=== PATIENT | female | born 1990 | race American Indian/Alaskan Native ===

== ENCOUNTER 2018-02-19 03:09 | Inpatient (IN) | payer SELFPAY ==
--- NOTE | 2018-02-19 03:28 | C.PDOC ---
History Of Present Illness Patient presents to the ER with a complaint of abdominal pain, nausea, and vomiting. Patient has a Hx of fibroids and states when she gets her periods it gets extremely painful. She took 2 oxycodon at home with no relief, she then took a xanax at home to try to sleep but was unable to. Denies fever or chills. Time Seen by Provider: 02/19/18 03:27 Chief Complaint (Nursing): Abdominal Pain History Per: Patient History/Exam Limitations: no limitations Onset/Duration Of Symptoms: Hrs Current Symptoms Are (Timing): Still Present Severity: Moderate Pain Scale Rating Of: 5 Location Of Pain/Discomfort: Diffuse, Epigastric Radiation Of Pain To:: None Quality Of Discomfort: Unable To Describe Associated Symptoms: Nausea, Vomiting. denies: Fever, Chills Exacerbating Factors: None Alleviating Factors: None Recent travel outside of the [place]: No Abnormal Vaginal Bleeding: No Past Medical History Reviewed: Historical Data, Nursing Documentation, Vital Signs Vital Signs: Last Vital Signs Temp 98.1 F 02/19/18 03:12 Pulse 67 02/19/18 03:12 Resp 16 02/19/18 03:12 BP 129/70 02/19/18 03:12 Pulse Ox 100 02/19/18 03:57 - Medical History PMH: Anxiety Denies: Chronic Kidney Disease Family History: States: No Known Family Hx - Social History Hx Alcohol Use: Yes Hx Substance Use: No - Immunization History Hx Tetanus Toxoid Vaccination: No Hx Influenza Vaccination: No Hx Pneumococcal Vaccination: No Review Of Systems Constitutional: Negative for: Fever, Chills Cardiovascular: Negative for: Chest Pain, Palpitations Respiratory: Negative for: Cough, Shortness of Breath Gastrointestinal: Positive for: Nausea, Vomiting, Abdominal Pain Physical Exam - Physical Exam Appears: Non-toxic Skin: Warm, Dry Head: Normacephalic Oral Mucosa: Moist Chest: Symmetrical, No Tenderness Cardiovascular: Rhythm Regular Respiratory: No Rales, No Rhonchi, No Wheezing Gastrointestinal/Abdominal: Soft, Tenderness (Diffuse, mostly mid epigastric), Guarding (Voluntary), No Rebound Back: No CVA Tenderness Neurological/Psych: Oriented x3 ED Course And Treatment - Laboratory Results Result Diagrams: 02/19/18 03:42 02/19/18 03:42 O2 Sat by Pulse Oximetry: 100 (Room air) Pulse Ox Interpretation: Normal Progress Note: Blood work and urinalysis ordered. IV fluids, pepcid, and zofran administered. Disposition Counseled Patient/Family Regarding: Studies Performed, Diagnosis - Disposition Disposition Time: 03:28 Condition: FAIR Forms: [employer] (Frisian) - Clinical Impression Clinical Impression: Abdominal pain, Nausea, Vomiting, Vaginal bleeding - Scribe Statement The provider has reviewed the documentation as recorded by the Scribe Bon Longoria All medical record entries made by the Scribe were at my direction and personally dictated by me. I have reviewed the chart and agree that the record accurately reflects my personal performance of the history, physical exam, medical decision making, and the department course for this patient. I have also personally directed, reviewed, and agree with the discharge instructions and disposition. Physician Patient Turnover Patient Signed Over To: Cristine Gu Handoff Comments: pending ct scan results and re-eval/dispo Decision To Admit - . Patient Diagnosis: Vaginal bleeding
[2018-02-19] MEDS ORDERED: Sodium Chloride 0.9% 1,000 ML IV ONE ×2 (03:31→05:11)
[2018-02-19 03:48] LABS: BASO % 0.6 % (0.0-2.0); EOS # 0.1 K/uL (0.0-0.7); EOS % 1.1 % (0.0-4.0); HEMOGLOBIN 13.4 g/dL (11.0-16.0); LYMPH % 13.9 % (20.0-40.0); MEAN CELL VOLUME 87.1 fL (81.0-99.0); MEAN CORPUSCULAR HEMOGLOBIN 29.3 pg (27.0-31.0); MEAN CORPUSCULAR HGB CONC 33.7 g/dL (33.0-37.0); MEAN PLATELET VOLUME 9.4 fL (7.2-11.7); MONO # 0.4 K/uL (0.0-0.8); MONO % 4.9 % (0.0-10.0); NEUT # 5.8 K/uL (1.8-7.0); NEUT % 79.5 % (50.0-75.0); RBC 4.55 Mil/uL (3.80-5.20); RED CELL DISTRIBUTION WIDTH 13.3 % (11.5-14.5); WHITE BLOOD COUNT 7.3 K/uL (4.8-10.8)
[2018-02-19 03:55] LABS: INR 1.2; PROTHROMBIN TIME 13.2 SECONDS (9.7-12.2)
[2018-02-19 03:59] LABS: ALB/GLOB RATIO 1.4 (1.0-2.1); ALBUMIN 4.7 g/dL (3.5-5.0); ALT/SGPT 20 U/L (9-52); AST/SGOT 17 U/L (14-36); BLOOD UREA NITROGEN 19 mg/dL (7-17); CALCIUM 9.6 mg/dl (8.6-10.4); GFR NON-AFRICAN AMERICAN > 60; LIPASE 74 U/L (23-300)
[2018-02-19 05:52] LABS: HCG,QUALITATIVE URINE NEGATIVE (NEGATIVE)
[2018-02-19 05:58] LABS: SQUAMOUS EPITHIAL 4 /hpf (0-5); URINE BILIRUBIN NEGATIVE (NEGATIVE); URINE BLOOD 3+ (NEGATIVE); URINE CLARITY Hazy (Clear); URINE COLOR Red (YELLOW); URINE GLUCOSE (UA) NORMAL (Normal); URINE LEUKOCYTE ESTERASE 1+ Leu/uL (Negative); URINE PROTEIN 2+ mg/dL (NEGATIVE); URINE UROBILINOGEN NORMAL mg/dL (0.2-1.0)
[2018-02-19 07:00] LABS: BARBITURATES, UR NEGATIVE (NEGATIVE); OPIATES, UR NEGATIVE (NEGATIVE); PHENCYCLIDINE, UR NEGATIVE (NEGATIVE)
[2018-02-19] MEDS ORDERED: Iodixanol 320 MG/ML 100 ML BOTTLE IV ONE (07:37)
[2018-02-19 07:38] LABS: BENZODIAZEPINES, UR POSITIVE (NEGATIVE)
--- NOTE | 2018-02-19 09:15 | CT ---
Date of service: 02/19/2018 PROCEDURE: CT Abdomen and Pelvis with contrast HISTORY: abd pain, diffuse COMPARISON: None. TECHNIQUE: Following the intravenous administration of iodinated contrast material, a CT examination of the abdomen and pelvis performed from the domes of the diaphragms to the symphysis pubis with reformatted datasets provided in axial, sagittal and coronal planes. Oral contrast was not administered as per referring physician request. Contrast dose: Visipaque 320, 100 cc Radiation dose: Total exam DLP = 338.23 mGy-cm. This CT exam was performed using one or more of the following dose reduction techniques: Automated exposure control, adjustment of the mA and/or kV according to patient size, and/or use of iterative reconstruction technique. FINDINGS: LOWER THORAX: Unremarkable. LIVER: Unremarkable. No gross lesion or ductal dilatation. GALLBLADDER AND BILE DUCTS: Unremarkable. PANCREAS: Unremarkable. No gross lesion or ductal dilatation. SPLEEN: Unremarkable. ADRENALS: Unremarkable. No mass. KIDNEYS AND URETERS: Unremarkable. No hydronephrosis. No solid mass. VASCULATURE: Unremarkable. No aortic aneurysm. BOWEL: Some was collapsed and poorly evaluated. Lack of oral contrast limits evaluation the gastrointestinal tract overall. Nevertheless, the collapsed large bowel exhibits apparent mural thickening nearly completely but spares the distal rectosigmoid and is suspicious for pancolitis nevertheless. No free intra peritoneal gas or abscess. No ascites. Small bowel appears unremarkable as imaged. APPENDIX: Normal appendix. PERITONEUM: Unremarkable. No free fluid. No free air. LYMPH NODES: Unremarkable. No enlarged lymph nodes. BLADDER: Unremarkable. REPRODUCTIVE: Fibroid uterine changes identified. BONES: Congenital or posttraumatic healed angulation of the distal sacral/coccyx bony anatomy anteriorly. OTHER FINDINGS: None. IMPRESSION: 1. Findings most compatible with vanegas colitis with exception of sparing of the distal rectosigmoid. No abscess, free air or ascites identified at this time. 2. Fibroid uterine changes.
--- NOTE | 2018-02-19 12:44 | CP.PCM.HP ---
Addendum entered and electronically signed by Naz Lewis, 02/19/18 15:13: A&P: Hypokalemia; Will replace with IV fluids. Will continue to monitor Positive leukocytosis on UA: Will check urine culture. Pt is on Cipro which will cover possible UTI Original Note: <Naz Lewis - Last Filed: 02/19/18 15:10> History of Present Illness - History of Present Illness History of Present Illness: H&P: 27 year old female with past medical history of uterine fibroids presents for intractable vomiting and abdominal pain. Patient states for past 4 months, she has had daily nausea and vomiting after eating. Patient states she throws up food content, bile and had one episode of blood few weeks ago. Patient also c/o periumbilical abdominal pain prior to vomiting. patient denies having any diarrhea or constipation. Patient denies having any blood in stool. Today patient complains of fevers and chills with vomiting. Patient states she has not seen a physician for her symptoms in past few months because of insurance issues. Prior to 4 months, patient only had N/V episodes during her periods. Patient has irregular periods occurring twice a month and lasting about 7-10 days. She has heavy bleeding with clots. She is not currently sexually active. In ED today patient received multiple medications including Zofran, reglan and compazine without much relief. CT of abd/pelvis showed pancolitis with exception of distal rectosigmoid and unchanged uterine fibroid. Patient was seen for similar symptoms a few months ago at [facility] [place] but pt does not want to elaborate on the ED visit detail. ROS: Denies having CP, SOB, constipation or diarrhea. C/O N/V, marquez-umbilical abd pain with vomiting. Complains of suprapubic pain with urination. denies dysuria. Currently on her period PMHx: stated above Sx: denies Social: occasional ETOH use. denies tobacco use. Smokes cannabis daily Meds: none PMD: Dr. Rasmussen Present on Admission - Present on Admission Any Indicators Present on Admission: No Review of Systems - Constitutional Constitutional: absent: Chills, Fever - EENT Eyes: absent: Blurred Vision, Change in Vision Nose/Mouth/Throat: absent: Nasal Discharge, Sore Throat - Cardiovascular Cardiovascular: absent: Chest Pain, Dyspnea, Leg Edema - Respiratory Respiratory: absent: Cough, Dyspnea, Wheezing - Gastrointestinal Gastrointestinal: Abdominal Pain, Nausea, Vomiting. absent: Bloating, Constipation, Diarrhea - Genitourinary Genitourinary: Hematuria. absent: Dysuria, Urinary Frequency - Reproductive: Female Reproductive:Female: Heavy Menses, Dysmenorrhea - Menstruation Menstruation: Cycle <21 Days, Menses 1-7 Days - Musculoskeletal Musculoskeletal: absent: Back Pain, Neck Pain - Integumentary Integumentary: absent: Lesions, Rash, Wounds - Neurological Neurological: absent: Numbness, Tingling, Weakness - Psychiatric Psychiatric: absent: Anxiety, Depression - Endocrine Endocrine: absent: Fatigue, Polydipsia, Polyphagia Past Patient History - Past Social History Smoking Status: Current Some Days Smoker Chewing Tobacco Use: No Cigar Use: No Alcohol: Occasional Drugs: Cannabis - CARDIAC Hx Cardiac Disorders: No - PULMONARY Hx Respiratory Disorders: No - NEUROLOGICAL Hx Neurological Disorder: No - HEENT Hx HEENT Problems: No - RENAL Hx Chronic Kidney Disease: No - ENDOCRINE/METABOLIC Hx Endocrine Disorders: No - HEMATOLOGICAL/ONCOLOGICAL Hx Blood Disorders: No - INTEGUMENTARY Hx Dermatological Problems: No - MUSCULOSKELETAL/RHEUMATOLOGICAL Hx Musculoskeletal Disorders: No - GASTROINTESTINAL Hx Gastrointestinal Disorders: No - GENITOURINARY/GYNECOLOGICAL Hx Genitourinary Disorders: No - PSYCHIATRIC Hx Anxiety: Yes Hx Substance Use: No Meds Allergies/Adverse Reactions: Allergies Allergy/AdvReac Type Severity Reaction Status Date / Time No Known Allergies Allergy Verified 02/19/18 03:31 Physical Exam - Constitutional Appears: Non-toxic, No Acute Distress - Head Exam Head Exam: ATRAUMATIC, NORMOCEPHALIC - ENT Exam ENT Exam: Mucous Membranes Moist - Respiratory Exam Respiratory Exam: Clear to Auscultation Bilateral. absent: Accessory Muscle Use , Rales, Rhonchi, Wheezes, Respiratory Distress - Cardiovascular Exam Cardiovascular Exam: REGULAR RHYTHM, RRR, +S1, +S2. absent: Diastolic murmur, Gallop, Rubs, Systolic Murmur - GI/Abdominal Exam GI & Abdominal Exam: Normal Bowel Sounds, Soft, Tenderness. absent: Distended, Firm, Guarding, Organomegaly, Rigid - Extremities Exam Extremities exam: Negative for: pedal edema, tenderness - Neurological Exam Neurological exam: Alert, Oriented x3 - Psychiatric Exam Psychiatric exam: Normal Affect, Normal Mood - Skin Skin Exam: Dry, Intact, Normal Color, Warm Results - Vital Signs Recent Vital Signs: Last Vital Signs Temp 98.5 F 02/19/18 11:49 Pulse 51 L 02/19/18 11:49 Resp 16 02/19/18 11:49 BP 129/85 02/19/18 11:49 Pulse Ox 100 02/19/18 11:49 - Labs Result Diagrams: 02/19/18 03:42 02/19/18 03:42 Labs: Laboratory Results - last 24 hr 02/19/18 02/19/18 02/19/18 03:13 03:42 03:42 WBC 7.3 RBC 4.55 Hgb 13.4 Hct 39.7 MCV 87.1 MCH 29.3 MCHC 33.7 RDW 13.3 Plt Count 202 MPV 9.4 Neut % (Auto) 79.5 H Lymph % (Auto) 13.9 L [place] % (Auto) 4.9 Eos % (Auto) 1.1 Baso % (Auto) 0.6 Neut # (Auto) 5.8 Lymph # (Auto) 1.0 [place] # (Auto) 0.4 Eos # (Auto) 0.1 Baso # (Auto) 0.0 PT 13.2 H INR 1.2 APTT 31 Sodium Potassium Chloride Carbon Dioxide Anion Gap BUN Creatinine Est GFR ( Amer) Est GFR (Non-Af Amer) POC Glucose (mg/dL) 116 H Random Glucose Calcium Total Bilirubin AST ALT Alkaline Phosphatase Total Protein Albumin Globulin Albumin/Globulin Ratio Lipase Beta HCG, Quant Urine Color Urine Clarity Urine pH Ur Specific [place] Urine Protein Urine Glucose (UA) Urine Ketones Urine Blood Urine Nitrate Urine Bilirubin Urine Urobilinogen Ur Leukocyte Esterase Urine WBC (Auto) Urine RBC (Auto) Ur Squamous Epith Cells Urine HCG, Qual Salicylates Urine Opiates Screen Urine Methadone Screen Acetaminophen Ur Barbiturates Screen Ur Phencyclidine Scrn Ur Amphetamines Screen U Benzodiazepines Scrn U Oth Cocaine Metabols U Cannabinoids Screen 02/19/18 02/19/18 02/19/18 03:42 03:42 03:42 WBC RBC Hgb Hct MCV MCH MCHC RDW Plt Count MPV Neut % (Auto) Lymph % (Auto) [place] % (Auto) Eos % (Auto) Baso % (Auto) Neut # (Auto) Lymph # (Auto) [place] # (Auto) Eos # (Auto) Baso # (Auto) PT INR APTT Sodium 144 Potassium 3.4 L Chloride 108 H Carbon Dioxide 23 Anion Gap 16 BUN 19 H Creatinine 0.9 Est GFR ( Amer) > 60 Est GFR (Non-Af Amer) > 60 POC Glucose (mg/dL) Random Glucose 125 H Calcium 9.6 Total Bilirubin 0.5 AST 17 ALT 20 Alkaline Phosphatase 43 Total Protein 8.1 Albumin 4.7 Globulin 3.4 Albumin/Globulin Ratio 1.4 Lipase 74 Beta HCG, Quant Urine Color Urine Clarity Urine pH Ur Specific [place] Urine Protein Urine Glucose (UA) Urine Ketones Urine Blood Urine Nitrate Urine Bilirubin Urine Urobilinogen Ur Leukocyte Esterase Urine WBC (Auto) Urine RBC (Auto) Ur Squamous Epith Cells Urine HCG, Qual Salicylates < 1.0 Urine Opiates Screen Urine Methadone Screen Acetaminophen < 10.0 L Ur Barbiturates Screen Ur Phencyclidine Scrn Ur Amphetamines Screen U Benzodiazepines Scrn U Oth Cocaine Metabols U Cannabinoids Screen 02/19/18 02/19/18 02/19/18 05:50 06:32 08:27 WBC RBC Hgb Hct MCV MCH MCHC RDW Plt Count MPV Neut % (Auto) Lymph % (Auto) [place] % (Auto) Eos % (Auto) Baso % (Auto) Neut # (Auto) Lymph # (Auto) [place] # (Auto) Eos # (Auto) Baso # (Auto) PT INR APTT Sodium Potassium Chloride Carbon Dioxide Anion Gap BUN Creatinine Est GFR ( Amer) Est GFR (Non-Af Amer) POC Glucose (mg/dL) Random Glucose Calcium Total Bilirubin AST ALT Alkaline Phosphatase Total Protein Albumin Globulin Albumin/Globulin Ratio Lipase Beta HCG, Quant < 2.39 Urine Color Red Urine Clarity Hazy Urine pH 6.0 Ur Specific [place] 1.019 Urine Protein 2+ H Urine Glucose (UA) Normal Urine Ketones 1+ H Urine Blood 3+ H Urine Nitrate Negative Urine Bilirubin Negative Urine Urobilinogen Normal Ur Leukocyte Esterase 1+ H Urine WBC (Auto) 9 H Urine RBC (Auto) 5158 H Ur Squamous Epith Cells 4 Urine HCG, Qual Negative Salicylates Urine Opiates Screen Negative Urine Methadone Screen Negative Acetaminophen Ur Barbiturates Screen Negative Ur Phencyclidine Scrn Negative Ur Amphetamines Screen Negative U Benzodiazepines Scrn Positive U Oth Cocaine Metabols Negative U Cannabinoids Screen Positive H Assessment & Plan - Assessment and Plan (Free Text) Assessment: 27 year old female with past medical history of uterine fibroids, menorrhagia is admitted for intractable N/V and abdominal pain. CT of abdomen/pelvis with IV contrast showed pancolitis with exception of distal rectosigmoid; no free air or ascites; uterine fibroid present. Pt was afebrile with normal WBC count on admission. LFTs and lipase were both normal. Intractable N/V - Likely 2/2 metomenorrhagia from the uterine fibroid - Zofran 4 mg IVP q6 prn - Reglan 10 mg IV q6 prn - Will check HgbA1c with concern for grastroperesis - UDS is positive for cannabis. Pt admits to smoking every day. with this, there is concern for Cannabinoid hyperemesis syndrome. The risks of chronic cannabis use are explained to patient Pancolitis - Pt started on cipro 400 mg IV Q12 and flagyl 500 IV Q8 - Continue NS with potassium chloride at 107 cc - pain management with toradol - Will consult GI, Dr. Mack - CLD Uterine fibroid - CLIENT ACCOUNT MANAGER, Dr. Trujillo consulted. Recommends pelvic and transvaginal US Prophylaxis - Protonix 40 mg IVP qd - SCDs - No DVT indicated due to DVT prophylaxis score of 0-1 Case will be discussed with attending, Dr. Neena Rico - Date & Time Date: 02/19/18 Time: 13:58 <Rj Rico - Last Filed: 02/19/18 18:20> Results - Vital Signs Recent Vital Signs: Last Vital Signs Temp 98.8 F 02/19/18 15:09 Pulse 59 L 02/19/18 15:09 Resp 20 02/19/18 15:09 BP 137/87 02/19/18 15:09 Pulse Ox 96 02/19/18 15:09 - Labs Result Diagrams: 02/19/18 03:42 02/19/18 03:42 Labs: Laboratory Results - last 24 hr 02/19/18 02/19/18 02/19/18 03:13 03:42 03:42 WBC 7.3 RBC 4.55 Hgb 13.4 Hct 39.7 MCV 87.1 MCH 29.3 MCHC 33.7 RDW 13.3 Plt Count 202 MPV 9.4 Neut % (Auto) 79.5 H Lymph % (Auto) 13.9 L [place] % (Auto) 4.9 Eos % (Auto) 1.1 Baso % (Auto) 0.6 Neut # (Auto) 5.8 Lymph # (Auto) 1.0 [place] # (Auto) 0.4 Eos # (Auto) 0.1 Baso # (Auto) 0.0 PT 13.2 H INR 1.2 APTT 31 Sodium Potassium Chloride Carbon Dioxide Anion Gap BUN Creatinine Est GFR ( Amer) Est GFR (Non-Af Amer) POC Glucose (mg/dL) 116 H Random Glucose Calcium Total Bilirubin AST ALT Alkaline Phosphatase Total Protein Albumin Globulin Albumin/Globulin Ratio Lipase Beta HCG, Quant Urine Color Urine Clarity Urine pH Ur Specific [place] Urine Protein Urine Glucose (UA) Urine Ketones Urine Blood Urine Nitrate Urine Bilirubin Urine Urobilinogen Ur Leukocyte Esterase Urine WBC (Auto) Urine RBC (Auto) Ur Squamous Epith Cells Urine HCG, Qual Salicylates Urine Opiates Screen Urine Methadone Screen Acetaminophen Ur Barbiturates Screen Ur Phencyclidine Scrn Ur Amphetamines Screen U Benzodiazepines Scrn U Oth Cocaine Metabols U Cannabinoids Screen 02/19/18 02/19/18 02/19/18 03:42 03:42 03:42 WBC RBC Hgb Hct MCV MCH MCHC RDW Plt Count MPV Neut % (Auto) Lymph % (Auto) [place] % (Auto) Eos % (Auto) Baso % (Auto) Neut # (Auto) Lymph # (Auto) [place] # (Auto) Eos # (Auto) Baso # (Auto) PT INR APTT Sodium 144 Potassium 3.4 L Chloride 108 H Carbon Dioxide 23 Anion Gap 16 BUN 19 H Creatinine 0.9 Est GFR ( Amer) > 60 Est GFR (Non-Af Amer) > 60 POC Glucose (mg/dL) Random Glucose 125 H Calcium 9.6 Total Bilirubin 0.5 AST 17 ALT 20 Alkaline Phosphatase 43 Total Protein 8.1 Albumin 4.7 Globulin 3.4 Albumin/Globulin Ratio 1.4 Lipase 74 Beta HCG, Quant Urine Color Urine Clarity Urine pH Ur Specific [place] Urine Protein Urine Glucose (UA) Urine Ketones Urine Blood Urine Nitrate Urine Bilirubin Urine Urobilinogen Ur Leukocyte Esterase Urine WBC (Auto) Urine RBC (Auto) Ur Squamous Epith Cells Urine HCG, Qual Salicylates < 1.0 Urine Opiates Screen Urine Methadone Screen Acetaminophen < 10.0 L Ur Barbiturates Screen Ur Phencyclidine Scrn Ur Amphetamines Screen U Benzodiazepines Scrn U Oth Cocaine Metabols U Cannabinoids Screen 02/19/18 02/19/18 02/19/18 05:50 06:32 08:27 WBC RBC Hgb Hct MCV MCH MCHC RDW Plt Count MPV Neut % (Auto) Lymph % (Auto) [place] % (Auto) Eos % (Auto) Baso % (Auto) Neut # (Auto) Lymph # (Auto) [place] # (Auto) Eos # (Auto) Baso # (Auto) PT INR APTT Sodium Potassium Chloride Carbon Dioxide Anion Gap BUN Creatinine Est GFR ( Amer) Est GFR (Non-Af Amer) POC Glucose (mg/dL) Random Glucose Calcium Total Bilirubin AST ALT Alkaline Phosphatase Total Protein Albumin Globulin Albumin/Globulin Ratio Lipase Beta HCG, Quant < 2.39 Urine Color Red Urine Clarity Hazy Urine pH 6.0 Ur Specific [place] 1.019 Urine Protein 2+ H Urine Glucose (UA) Normal Urine Ketones 1+ H Urine Blood 3+ H Urine Nitrate Negative Urine Bilirubin Negative Urine Urobilinogen Normal Ur Leukocyte Esterase 1+ H Urine WBC (Auto) 9 H Urine RBC (Auto) 5158 H Ur Squamous Epith Cells 4 Urine HCG, Qual Negative Salicylates Urine Opiates Screen Negative Urine Methadone Screen Negative Acetaminophen Ur Barbiturates Screen Negative Ur Phencyclidine Scrn Negative Ur Amphetamines Screen Negative U Benzodiazepines Scrn Positive U Oth Cocaine Metabols Negative U Cannabinoids Screen Positive H Attending/Attestation - Attestation I have personally seen and examined this patient.: Yes I have fully participated in the care of the patient.: Yes I have reviewed all pertinent clinical information: Yes Notes (Text): 02/19/18 18:18 Patient was seen and examined at 5:45 PM History, physical, assessment and plan were gone over with the resident Patient significant other was at bedside [facility] and plan of care was also explained to her. Medicine Team learned that this is a patient of Dr. Rasmussen and care of patient has been transferred over to him. Rj Rico D.O.
[2018-02-19] MEDS: metroNIDAZOLE IV 500 mg/100 ml 500 MG/100 ML BAG IVPB SCH ×2 (13:30→21:28)
[2018-02-19] MEDS ORDERED: Sodium Chloride 0.9% 1,000 ML IV SCH ×2 (13:45)
--- NOTE | 2018-02-19 16:22 | US ---
Date of service: 02/19/2018 HISTORY: uterine fibroid COMPARISON: None available. TECHNIQUE: Transabdominal pelvic ultrasound was performed with longitudinal and transverse images submitted for interpretation. Transvaginal study was not utilized due to [place]. FINDINGS: UTERUS: Measures 9.5 x 5.9 x 6.3 cm. The uterus is enlarged by fibroid uterine changes and is anteverted. There is a small exophytic fibroid identified at the high anterior fundus measuring 1.8 x 1.9 x 1.4 cm. A larger posterior fundal fibroid measures 3.4 x 2.8 x 3.3 cm and bridges submucous and sub serosal spaces at the high posterior fundus. No additional isolated myometrial lesions are identified. ENDOMETRIUM: Measures 8.7 mm in diameter. Unremarkable. CERVIX: No cervical abnormality identified. RIGHT OVARY: Measures 3.1 x 2.4 x 3.2 cm. A small 5 mm hyperechoic focus is seen in the right ovary suspicious for a tiny dermoid or teratoma. Normal flow. LEFT OVARY: Measures 2.3 x 1.8 x 2.0 cm. No solid mass. Normal flow. FREE FLUID: No significant free fluid noted. OTHER FINDINGS: None. IMPRESSION: 1. No ovarian torsion bilaterally. 2. 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 3. Enlarged uterus with 2 uterine fibroids identified as per above. Unremarkable endometrium and cervix. No suspicious pelvic fluid collection.
[2018-02-19] MEDS: Ciprofloxacin 400mg/200ml D5W 400 MG/200 ML BAG IVPB SCH (17:11)
--- NOTE | 2018-02-19 21:25 | CP.PCM.CON ---
History of Present Illness - History of Present Illness History of Present Illness: 27 yo female G0 and only sexually active with her female partner. States: I am a virgin and are very afraid of pelvic exams. Presented to ER with c/o of intractable nausea and vomiting and with heavy menstrual flow for the past 2 days. In addition states that she was feeling dizzie and lightheaded Furthermore , she gives a Hx of similar conditions every time she has her period and since Menarche at age 11. Admits to been seen at different ER's and always sent home after lots of tests and unable to find anything wrong with her. Pt gave a Hx of + Fibroids and states that she is been told that those are most likely the reason for her prolonged and heavy periods. Denies lots of cramping with her menses. Has appointment to see Dr. Kelly for the first time. Review of Systems - Review of Systems All systems: reviewed and no additional remarkable complaints except (was is already indicated in HPI) Past Patient History - Past Medical History & Family History Past Medical History?: Yes Past Family History: Reviewed and not pertinent - Past Social History Smoking Status: Current Some Days Smoker Chewing Tobacco Use: No Cigar Use: No Alcohol: Occasional Drugs: Cannabis - CARDIAC Hx Cardiac Disorders: No - PULMONARY Hx Respiratory Disorders: No - NEUROLOGICAL Hx Neurological Disorder: No - HEENT Hx HEENT Problems: No - RENAL Hx Chronic Kidney Disease: No - ENDOCRINE/METABOLIC Hx Endocrine Disorders: No - HEMATOLOGICAL/ONCOLOGICAL Hx Blood Disorders: No - INTEGUMENTARY Hx Dermatological Problems: No - MUSCULOSKELETAL/RHEUMATOLOGICAL Hx Musculoskeletal Disorders: No - GASTROINTESTINAL Hx Gastrointestinal Disorders: No - GENITOURINARY/GYNECOLOGICAL Hx Genitourinary Disorders: No LMP:: 02/17/2018 : 0 - PSYCHIATRIC Hx Anxiety: Yes Hx Substance Use: No Meds Allergies/Adverse Reactions: Allergies Allergy/AdvReac Type Severity Reaction Status Date / Time No Known Allergies Allergy Verified 02/19/18 03:31 - Medications Medications: Current Medications Ciprofloxacin (Cipro 400mg/200ml Dsw) 400 mg in 200 mls @ 133 mls/hr IVPB Q12H SIMON PRN Reason: Protocol Last Admin: 02/19/18 17:11 Dose: 133 mls/hr Metronidazole (Flagyl) 500 mg in 100 mls @ 100 mls/hr IVPB Q8H SIMON PRN Reason: Protocol Last Admin: 02/19/18 13:30 Dose: 100 mls/hr Potassium Chloride 40 meq/ (Sodium Chloride) 1,020 mls @ 107 mls/hr IV .Q9H32M [facility] Last Admin: 02/19/18 15:19 Dose: 107 mls/hr Ketorolac Tromethamine (Toradol) 30 mg IVP Q6 PRN PRN Reason: Pain, severe (8-10) Last Admin: 02/19/18 17:06 Dose: 30 mg Ketorolac Tromethamine (Toradol) 15 mg IVP Q6 PRN PRN Reason: Pain, moderate (4-7) Metoclopramide HCl (Reglan) 10 mg IVP Q6H PRN PRN Reason: Nausea/Vomiting Last Admin: 02/19/18 17:06 Dose: 10 mg Ondansetron HCl (Zofran Inj) 4 mg IVP Q6H PRN PRN Reason: Nausea/Vomiting Last Admin: 02/19/18 13:48 Dose: 4 mg Pantoprazole Sodium (Protonix Inj) 40 mg IVP DAILY [facility] Physical Exam - Constitutional Appears: Non-toxic, No Acute Distress - Head Exam Head Exam: NORMAL INSPECTION - GI/Abdominal Exam GI & Abdominal Exam: Soft - Exam External exam: NORMAL EXTERNAL EXAM Speculum exam: NORMAL SPECULUM EXAM, Vaginal Bleeding Bimanual exam: Uterine Enlargement Additional comments: Cervix visualized and no lesions noted Small amount of blood in vagina Uterus about 8-10 weeks size and irregular Unable to palpate adnexa secondary to uterine size and pt's discomfort with pelvic exam - Extremities Exam Extremities exam: Positive for: normal inspection Results - Vital Signs Recent Vital Signs: Last Vital Signs Temp 98.8 F 02/19/18 15:09 Pulse 59 L 02/19/18 15:09 Resp 20 02/19/18 15:09 BP 137/87 02/19/18 15:09 Pulse Ox 96 02/19/18 15:09 - Labs Result Diagrams: 02/19/18 03:42 02/19/18 03:42 Labs: Laboratory Results - last 24 hr 02/19/18 02/19/18 02/19/18 03:13 03:42 03:42 WBC 7.3 RBC 4.55 Hgb 13.4 Hct 39.7 MCV 87.1 MCH 29.3 MCHC 33.7 RDW 13.3 Plt Count 202 MPV 9.4 Neut % (Auto) 79.5 H Lymph % (Auto) 13.9 L [place] % (Auto) 4.9 Eos % (Auto) 1.1 Baso % (Auto) 0.6 Neut # (Auto) 5.8 Lymph # (Auto) 1.0 [place] # (Auto) 0.4 Eos # (Auto) 0.1 Baso # (Auto) 0.0 PT 13.2 H INR 1.2 APTT 31 Sodium Potassium Chloride Carbon Dioxide Anion Gap BUN Creatinine Est GFR ( Amer) Est GFR (Non-Af Amer) POC Glucose (mg/dL) 116 H Random Glucose Calcium Total Bilirubin AST ALT Alkaline Phosphatase Total Protein Albumin Globulin Albumin/Globulin Ratio Lipase Beta HCG, Quant Urine Color Urine Clarity Urine pH Ur Specific [place] Urine Protein Urine Glucose (UA) Urine Ketones Urine Blood Urine Nitrate Urine Bilirubin Urine Urobilinogen Ur Leukocyte Esterase Urine WBC (Auto) Urine RBC (Auto) Ur Squamous Epith Cells Urine HCG, Qual Salicylates Urine Opiates Screen Urine Methadone Screen Acetaminophen Ur Barbiturates Screen Ur Phencyclidine Scrn Ur Amphetamines Screen U Benzodiazepines Scrn U Oth Cocaine Metabols U Cannabinoids Screen 02/19/18 02/19/18 02/19/18 03:42 03:42 03:42 WBC RBC Hgb Hct MCV MCH MCHC RDW Plt Count MPV Neut % (Auto) Lymph % (Auto) [place] % (Auto) Eos % (Auto) Baso % (Auto) Neut # (Auto) Lymph # (Auto) [place] # (Auto) Eos # (Auto) Baso # (Auto) PT INR APTT Sodium 144 Potassium 3.4 L Chloride 108 H Carbon Dioxide 23 Anion Gap 16 BUN 19 H Creatinine 0.9 Est GFR ( Amer) > 60 Est GFR (Non-Af Amer) > 60 POC Glucose (mg/dL) Random Glucose 125 H Calcium 9.6 Total Bilirubin 0.5 AST 17 ALT 20 Alkaline Phosphatase 43 Total Protein 8.1 Albumin 4.7 Globulin 3.4 Albumin/Globulin Ratio 1.4 Lipase 74 Beta HCG, Quant Urine Color Urine Clarity Urine pH Ur Specific [place] Urine Protein Urine Glucose (UA) Urine Ketones Urine Blood Urine Nitrate Urine Bilirubin Urine Urobilinogen Ur Leukocyte Esterase Urine WBC (Auto) Urine RBC (Auto) Ur Squamous Epith Cells Urine HCG, Qual Salicylates < 1.0 Urine Opiates Screen Urine Methadone Screen Acetaminophen < 10.0 L Ur Barbiturates Screen Ur Phencyclidine Scrn Ur Amphetamines Screen U Benzodiazepines Scrn U Oth Cocaine Metabols U Cannabinoids Screen 02/19/18 02/19/18 02/19/18 05:50 06:32 08:27 WBC RBC Hgb Hct MCV MCH MCHC RDW Plt Count MPV Neut % (Auto) Lymph % (Auto) [place] % (Auto) Eos % (Auto) Baso % (Auto) Neut # (Auto) Lymph # (Auto) [place] # (Auto) Eos # (Auto) Baso # (Auto) PT INR APTT Sodium Potassium Chloride Carbon Dioxide Anion Gap BUN Creatinine Est GFR ( Amer) Est GFR (Non-Af Amer) POC Glucose (mg/dL) Random Glucose Calcium Total Bilirubin AST ALT Alkaline Phosphatase Total Protein Albumin Globulin Albumin/Globulin Ratio Lipase Beta HCG, Quant < 2.39 Urine Color Red Urine Clarity Hazy Urine pH 6.0 Ur Specific [place] 1.019 Urine Protein 2+ H Urine Glucose (UA) Normal Urine Ketones 1+ H Urine Blood 3+ H Urine Nitrate Negative Urine Bilirubin Negative Urine Urobilinogen Normal Ur Leukocyte Esterase 1+ H Urine WBC (Auto) 9 H Urine RBC (Auto) 5158 H Ur Squamous Epith Cells 4 Urine HCG, Qual Negative Salicylates Urine Opiates Screen Negative Urine Methadone Screen Negative Acetaminophen Ur Barbiturates Screen Negative Ur Phencyclidine Scrn Negative Ur Amphetamines Screen Negative U Benzodiazepines Scrn Positive U Oth Cocaine Metabols Negative U Cannabinoids Screen Positive H - Imaging and Cardiology US - abdomen Status: Image reviewed by me Additional comment: US of Pelvis reviewed and uterus midly enlarged, AV. + small exophytic high anterior Fibroid 1.8 x 1.9. A larger posterior/submucosal/subserosal fundal Fibroid 2.4x2.8 at the high posterior fundus Assessment & Plan - Assessment and Plan (Free Text) Assessment: 1. Dysfunctional Uterine Bleeding with frequent, heavy and prolonged menses 2. Multiple small fibroids per US and not necessarily pressing on her bowel based on their size and location 3. Tiny R ovarian ?Dermoid or teratoma 4. Lesbian 5. Extremely anxious with pelvic exam 6. Nl H&H and not consistent with Hx of heavy and prolonged menses 7. Pancolitis per CtScan 8. Intractable N&V and abdominal pain at time of menses Plan: 1. Pt will probably need an extensive SIDE LASTER TACK work-up as an outpatient and by a Sheriff 2. Already has appointment with Dr. Kelly and advised to keep appointment PATRICIA 3. Recomend GI consultation 4. Suggest a Psychiatric consultation 5. Suggest to order a Ca125, Estrogen, Progesterone and Prolactin levels as well as Testosterone levels 6. Thanks for consultation and will follow up with you - Date & Time Date: 02/19/18 Time: 19:30
[2018-02-20] MEDS: metroNIDAZOLE IV 500 mg/100 ml 500 MG/100 ML BAG IVPB SCH ×3 (05:20→20:21)
[2018-02-20] MEDS: Ciprofloxacin 400mg/200ml D5W 400 MG/200 ML BAG IVPB SCH ×2 (06:25→18:02)
[2018-02-20] MEDS ORDERED: Enoxaparin 40 mg Syringe SC SCH (10:00)
[2018-02-20 13:56] LABS: BASO % 0.3 % (0.0-2.0); HEMOGLOBIN 12.2 g/dL (11.0-16.0); LYMPH # 0.6 K/uL (1.0-4.3); LYMPH % 8.9 % (20.0-40.0); MEAN CORPUSCULAR HEMOGLOBIN 29.5 pg (27.0-31.0); MEAN CORPUSCULAR HGB CONC 34.3 g/dL (33.0-37.0); MEAN PLATELET VOLUME 9.4 fL (7.2-11.7); MONO # 0.5 K/uL (0.0-0.8); MONO % 8.1 % (0.0-10.0); NEUT # 5.6 K/uL (1.8-7.0); NEUT % 82.7 % (50.0-75.0); PLATELET COUNT 213 K/uL (130-400); RBC 4.15 Mil/uL (3.80-5.20); RED CELL DISTRIBUTION WIDTH 13.2 % (11.5-14.5); WHITE BLOOD COUNT 6.7 K/uL (4.8-10.8)
[2018-02-20 14:07] LABS: BLOOD UREA NITROGEN 12 mg/dL (7-17); CALCIUM 9.2 mg/dl (8.6-10.4); GFR NON-AFRICAN AMERICAN > 60
[2018-02-20 14:22] LABS: PROLACTIN 44.6 ng/mL (3.0-18.9)
[2018-02-20 14:29] LABS: FREE T4 1.11 ng/dL (0.78-2.19)
[2018-02-20 14:42] LABS: EOSINOPHIL 1 % (0-4); LYMPHOCYTE 9 % (20-40); MONOCYTE 8 % (0-10); NEUTROPHIL 82 % (50-75); PLATELET ESTIMATE NORMAL (NORMAL); TOTAL CELLS COUNTED 100
[2018-02-20 14:43] LABS: ANISOCYTOSIS SLIGHT; LARGE PLATELETS PRESENT
[2018-02-21] MEDS: metroNIDAZOLE IV 500 mg/100 ml 500 MG/100 ML BAG IVPB SCH ×3 (04:45→20:56)
[2018-02-21] MEDS: Ciprofloxacin 400mg/200ml D5W 400 MG/200 ML BAG IVPB SCH ×2 (05:51→17:34)
[2018-02-21 08:00] VITALS: RESP 20
--- NOTE | 2018-02-21 14:33 | CP.PCM.PN ---
Subjective - Date & Time of Evaluation Date of Evaluation: 02/21/18 Time of Evaluation: 14:30 - Subjective Subjective: PGYIII progress note for Dr. Rasmussen Pt seen and examined at bedside. No acute events overnight. Pt states that overnight she had multiple episodes of NB/NB vomiting. She states that she isn' t tolerating any food. Denies having any constipation or diarrhea. Continues to c/o diffuse abdominal pain and subjective fevers and chills. Denies having any CP, SOB, LE pain or swelling, dysuria. Objective - Vital Signs/Intake and Output Vital Signs (last 24 hours): Temp Pulse Resp BP Pulse Ox 98.4 F 60 20 115/73 97 02/21/18 07:58 02/21/18 07:58 02/21/18 07:58 02/21/18 07:58 02/21/18 09:21 Intake and Output: 02/21/18 02/21/18 06:59 18:59 Intake Total 1156 988 Balance 1156 988 - Medications Medications: Current Medications Ciprofloxacin (Cipro 400mg/200ml Dsw) 400 mg in 200 mls @ 133 mls/hr IVPB Q12H SIMON PRN Reason: Protocol Last Admin: 02/21/18 05:51 Dose: 133 mls/hr Metronidazole (Flagyl) 500 mg in 100 mls @ 100 mls/hr IVPB Q8H SIMON PRN Reason: Protocol Last Admin: 02/21/18 12:44 Dose: 100 mls/hr Potassium Chloride 40 meq/ (Sodium Chloride) 1,020 mls @ 107 mls/hr IV .Q9H32M [facility] Last Admin: 02/21/18 14:13 Dose: Not Given Metoclopramide HCl (Reglan) 10 mg IVP Q6H PRN PRN Reason: Nausea/Vomiting Last Admin: 02/21/18 04:57 Dose: 10 mg Ondansetron HCl (Zofran Inj) 8 mg IVP Q6H PRN PRN Reason: Nausea/Vomiting Last Admin: 02/20/18 23:59 Dose: 8 mg Pantoprazole Sodium (Protonix Inj) 40 mg IVP DAILY [facility] Last Admin: 02/21/18 10:19 Dose: 40 mg - Labs Labs: 02/20/18 13:45 02/20/18 13:45 PT 13.2 SECONDS (9.7-12.2) H 02/19/18 03:42 INR 1.2 02/19/18 03:42 APTT 31 SECONDS (21-34) 02/19/18 03:42 - Constitutional Appears: Non-toxic, No Acute Distress - Head Exam Head Exam: ATRAUMATIC, NORMOCEPHALIC - ENT Exam ENT Exam: Mucous Membranes Moist - Respiratory Exam Respiratory Exam: Clear to Ausculation Bilateral. absent: Accessory Muscle Use , Rales, Rhonchi, Wheezes, Respiratory Distress - Cardiovascular Exam Cardiovascular Exam: REGULAR RHYTHM, +S1, +S2. absent: Gallop, Rubs, Murmur - GI/Abdominal Exam GI & Abdominal Exam: Soft, Normal Bowel Sounds. absent: Distended, Firm, Guarding, Rigid, Tenderness, Organomegaly - Extremities Exam Extremities Exam: absent: Pedal Edema, Tenderness - Neurological Exam Neurological Exam: Alert, Awake, Oriented x3 - Psychiatric Exam Psychiatric exam: Normal Affect, Normal Mood - Skin Skin Exam: Dry, Intact, Normal Color, Warm Assessment and Plan - Assessment and Plan (Free Text) Assessment: 27 year old female with past medical history of uterine fibroids, menorrhagia is admitted for intractable N/V and abdominal pain. CT of abdomen/pelvis with IV contrast showed pancolitis with exception of distal rectosigmoid; no free air or ascites; uterine fibroid present. Pt was afebrile with normal WBC count on admission. LFTs and lipase were both normal. Intractable N/V - Likely 2/2 metomenorrhagia from the uterine fibroid - Zofran 4 mg IVP q6 prn - Reglan 10 mg IV q6 prn - Continue IV fluid NS Pancolitis - Started on cipro 400 mg IV Q12 and flagyl 500 IV Q8 on 02/19/18 - Continue NS with potassium chloride at 107 cc - pain management with toradol - GI, Dr. Mack consulted. awaiting recs - CLD Uterine fibroid - LENS EXAMINER, Dr. Trujillo consulted. - Transvag US showed no ovarian torsion B/L. 5 mm right ovarian dermoid or teratoma. Enlarged uterus with 2 uterine fibroids. - CA 125 134, Prolactin 44.6, TSH 1.11 Free T4 0.38 - Awaiting estradiol, progesterone and testosterone levels - Due to elevated prolactin level, should ocnsider getting MRI of brain to rule out prolactinoma - Patient has outpt appointment with private OB Dr. Kelly upon discharge Prophylaxis - Protonix 40 mg IVP qd - SCDs - No DVT indicated due to DVT prophylaxis score of 0-1 All orders and management per Dr. Rasmussen
[2018-02-22] MEDS: metroNIDAZOLE IV 500 mg/100 ml 500 MG/100 ML BAG IVPB SCH (04:43)
--- NOTE | 2018-02-22 04:58 | CP.PCM.PCO ---
Physician Communication Note - Physician Communication Note Physician Communication Note: nurse call that patient has not urinated & bladder scan >1300. insert pandya
[2018-02-22] MEDS: Ciprofloxacin 400mg/200ml D5W 400 MG/200 ML BAG IVPB SCH (06:00)
[2018-02-22 07:59] VITALS: BP 125/80; PULSE 61; TEMP 98.1; O2SAT 100
[2018-02-22 08:59] LABS: BASO % 0.7 % (0.0-2.0); EOS % 0.7 % (0.0-4.0); HEMOGLOBIN 13.2 g/dL (11.0-16.0); LYMPH # 1.2 K/uL (1.0-4.3); LYMPH % 24.5 % (20.0-40.0); MEAN CELL VOLUME 84.2 fL (81.0-99.0); MEAN CORPUSCULAR HEMOGLOBIN 29.8 pg (27.0-31.0); MEAN CORPUSCULAR HGB CONC 35.4 g/dL (33.0-37.0); MEAN PLATELET VOLUME 9.2 fL (7.2-11.7); MONO # 0.8 K/uL (0.0-0.8); MONO % 15.9 % (0.0-10.0); NEUT # 2.8 K/uL (1.8-7.0); NEUT % 58.2 % (50.0-75.0); NRBC % 0.1 % (0.0-2.0); RBC 4.44 Mil/uL (3.80-5.20); WHITE BLOOD COUNT 4.7 K/uL (4.8-10.8)
--- NOTE | 2018-02-22 09:07 | HP ---
Copied To: Rachel Rasmussen MD Attending MD: Rachel Rasmussen MD HISTORY OF PRESENT ILLNESS: The patient 27 year-old female chief complaint of nausea and intractable vomiting. The patient came to the hospital, advised admission. The patient has history of nausea, vomiting. PHYSICAL EXAMINATION: GENERAL: The patient is awake, alert, and oriented. VITAL SIGNS: Temperature 98, pulse 90. HEENT: Within normal limits. NECK: Supple. CHEST: Symmetrical. HEART: Regular. ABDOMEN: Soft. EXTREMITIES: No edema. IMPRESSION: Intractable vomiting. The patient to get bed rest, supportive care. Rachel Rasmussen MD
[2018-02-22 09:18] LABS: ALB/GLOB RATIO 1.5 (1.0-2.1); ALBUMIN 4.1 g/dL (3.5-5.0); ALT/SGPT 23 U/L (9-52); AST/SGOT 14 U/L (14-36); BLOOD UREA NITROGEN 8 mg/dL (7-17); CALCIUM 9.2 mg/dl (8.6-10.4); GFR NON-AFRICAN AMERICAN > 60
--- NOTE | 2018-02-22 12:09 | CP.PCM.PN ---
Subjective - Date & Time of Evaluation Date of Evaluation: 02/22/18 Time of Evaluation: 08:50 - Subjective Subjective: Medicine progress note for Dr. Rasmussen's service Patient seen and examined. Patient states she is feeling well and is tolerating liquid diet. Patient states that strong smells are still making her nauseous but denies other symptoms. Patient eager to go home. Objective - Vital Signs/Intake and Output Vital Signs (last 24 hours): Temp Pulse Resp BP Pulse Ox 98.1 F 61 20 125/80 100 02/22/18 07:58 02/22/18 07:58 02/22/18 07:58 02/22/18 07:58 02/22/18 07:58 Intake and Output: 02/22/18 02/22/18 06:59 18:59 Intake Total 1156 200 Balance 1156 200 - Medications Medications: Current Medications Ciprofloxacin (Cipro 400mg/200ml Dsw) 400 mg in 200 mls @ 133 mls/hr IVPB Q12H SIMON PRN Reason: Protocol Last Admin: 02/22/18 06:00 Dose: 133 mls/hr Metronidazole (Flagyl) 500 mg in 100 mls @ 100 mls/hr IVPB Q8H SIMON PRN Reason: Protocol Last Admin: 02/22/18 04:43 Dose: 100 mls/hr Potassium Chloride 40 meq/ (Sodium Chloride) 1,020 mls @ 107 mls/hr IV .Q9H32M [facility] Last Admin: 02/22/18 10:08 Dose: Not Given Metoclopramide HCl (Reglan) 10 mg IVP Q6H PRN PRN Reason: Nausea/Vomiting Last Admin: 02/21/18 04:57 Dose: 10 mg Ondansetron HCl (Zofran Inj) 8 mg IVP Q6H PRN PRN Reason: Nausea/Vomiting Last Admin: 02/20/18 23:59 Dose: 8 mg Pantoprazole Sodium (Protonix Inj) 40 mg IVP DAILY [facility] Last Admin: 02/22/18 10:06 Dose: 40 mg - Labs Labs: 02/22/18 08:53 02/22/18 08:53 PT 13.2 SECONDS (9.7-12.2) H 02/19/18 03:42 INR 1.2 02/19/18 03:42 APTT 31 SECONDS (21-34) 02/19/18 03:42 - Constitutional Appears: Non-toxic, No Acute Distress - Head Exam Head Exam: ATRAUMATIC, NORMOCEPHALIC - Eye Exam Eye Exam: EOMI - ENT Exam ENT Exam: Mucous Membranes Moist - Respiratory Exam Respiratory Exam: Clear to Ausculation Bilateral, NORMAL BREATHING PATTERN - Cardiovascular Exam Cardiovascular Exam: +S1, +S2 - GI/Abdominal Exam GI & Abdominal Exam: Soft, Normal Bowel Sounds. absent: Tenderness - Extremities Exam Extremities Exam: Normal Inspection. absent: Calf Tenderness - Neurological Exam Neurological Exam: Alert, Awake - Psychiatric Exam Psychiatric exam: Normal Affect - Skin Skin Exam: Warm Assessment and Plan - Assessment and Plan (Free Text) Assessment: 27 year old female with past medical history of uterine fibroids, menorrhagia is admitted for intractable N/V and abdominal pain. CT of abdomen/pelvis with IV contrast showed pancolitis with exception of distal rectosigmoid; no free air or ascites; uterine fibroid present. Pt was afebrile with normal WBC count on admission. LFTs and lipase were both normal. Intractable N/V - improved, patient tolerating diet - Likely 2/2 metomenorrhagia from the uterine fibroid - Zofran 4 mg IVP q6 prn - Reglan 10 mg IV q6 prn - Continue IV fluid NS Pancolitis - Started on cipro 400 mg IV Q12 and flagyl 500 IV Q8 on 02/19/18- to be discontinued 02/22 - pain management with toradol - patient tolerating CLD, patient to advance as tolerated Uterine fibroid - STAFFING BRANCH MANAGER, Dr. Trujillo consulted. - Transvag US showed no ovarian torsion B/L. 5 mm right ovarian dermoid or teratoma. Enlarged uterus with 2 uterine fibroids. - CA 125 134, Prolactin 44.6, TSH 1.11 Free T4 0.38 - Awaiting estradiol, progesterone and testosterone levels - Due to elevated prolactin level, should consider getting MRI of brain to rule out prolactinoma as outpatient - Patient has outpatient appointment with private OB Dr. Kelly upon discharge Prophylaxis - Protonix 40 mg IVP qd - SCDs All orders and management per Dr. Rasmussen Patient is stable for discharge home per Dr. Rasmussen. Patient is to follow up with her OBGYN Dr. Kelly on discharge. Patient is to follow up with Dr. Rasmussen in his office within the week following discharge. Patient is being prescribed Zofran ODT 4mg q8h as needed for nausea. She is to return to the ED if symptoms reoccur or worsen. This was explained to the patient who understands and agrees.
== END 2018-02-22 13:32 | disposition home or self-care (01) | DRG 761 ==
LOC: C.ER 03:09 → C.9OBSV 11:57 → C.3T 13:08 → OBSVTOIN 02-21 14:43
PROVIDERS: ADMIT Internal Medicine Pulmonary Disease; ATTEND Internal Medicine Pulmonary Disease
DX: D25.9 Leiomyoma of uterus, unspecified (principal); F12.90 Cannabis use, unspecified, uncomplicated; F17.200 Nicotine dependence, unspecified, uncomplicated; N92.0 Excessive and frequent menstruation with regular cycle; F13.10 Sedative, hypnotic or anxiolytic abuse, uncomplicated

== ENCOUNTER 2018-04-27 09:44 | Emergency (ER) | payer MEDICAID ==
[2018-04-27] MEDS ORDERED: Sodium Chloride 0.9% 2,000 ML IV ONE (10:14)
[2018-04-27 10:27] LABS: BASO % 0.3 % (0.0-2.0); LYMPH # 0.7 K/uL (1.0-4.3); LYMPH % 10.8 % (20.0-40.0); MEAN CELL VOLUME 85.8 fL (81.0-99.0); MEAN CORPUSCULAR HEMOGLOBIN 29.4 pg (27.0-31.0); MEAN CORPUSCULAR HGB CONC 34.3 g/dL (33.0-37.0); MEAN PLATELET VOLUME 9.3 fL (7.2-11.7); MONO # 0.6 K/uL (0.0-0.8); MONO % 8.8 % (0.0-10.0); NEUT # 5.3 K/uL (1.8-7.0); NEUT % 80.1 % (50.0-75.0); RBC 4.42 Mil/uL (3.80-5.20); RED CELL DISTRIBUTION WIDTH 12.9 % (11.5-14.5); WHITE BLOOD COUNT 6.6 K/uL (4.8-10.8)
--- NOTE | 2018-04-27 10:28 | C.PDOC ---
History Of Present Illness 27 year old female with a history of fibroids and dysfunctional uterine bleeding presents to the ED for evaluation of recurrent interact vomiting and lower abdominal pain for 3 days. Patient reports having prior similar episodes, she was admitted 01/2018 for the same symptoms. Admits to taking Zofran at home but was unable to keep it down due to the recurrent vomiting. Notes she has a pending OBGYN surgery with Dr. Kelly next week. Denies diarrhea, fever, chills, headache, and any other associated symptoms. RECUR INTRACT VOMIT X 3 DAYS. PS HO PRIOR SIM EPISODES, ADMITTED 01/2018 FOR SAME. HO FIBROIDS, DUB. PS TRIED ZOFRAN @ HOME BUT UNABLE TO KEEP DOWN DUE TO VOMITING. +LOWER ABD PAIN SIM TO PRIOR. PENDING OBGYN SURG W DR KELLY NEXT WEEK. EXAM MOD DIST HEENT MM DRY, SUNKEN EYES ABD SOFT +LOWER SUPRAPUB TEND NONDIST NO R/G POOR TURGOR REMAINDER NEG Time Seen by Provider: 04/27/18 09:52 Chief Complaint (Nursing): Abdominal Pain History Per: Patient History/Exam Limitations: no limitations Onset/Duration Of Symptoms: Days Current Symptoms Are (Timing): Still Present Past Medical History Reviewed: Historical Data, Nursing Documentation, Vital Signs Vital Signs: Last Vital Signs Temp 98.3 F 04/27/18 09:50 Pulse 65 04/27/18 09:50 Resp 20 04/27/18 09:50 BP 104/65 04/27/18 09:50 Pulse Ox 100 04/27/18 09:50 - Medical History PMH: Anxiety, Gastritis Denies: Chronic Kidney Disease Family History: States: Unknown Family Hx - Social History Hx Alcohol Use: Yes Hx Substance Use: Yes - Immunization History Hx Tetanus Toxoid Vaccination: No Hx Influenza Vaccination: No Hx Pneumococcal Vaccination: No Review Of Systems Except As Marked, All Systems Reviewed And Found Negative. Constitutional: Negative for: Fever, Chills Gastrointestinal: Positive for: Vomiting, Abdominal Pain (lower). Negative for: Diarrhea Neurological: Negative for: Headache Physical Exam - Physical Exam Appears: Non-toxic, Other (moderate distress.) Skin: Dry, Other (poor turgor. ) Head: Atraumatic, Normacephalic Eye(s): bilateral: Normal Inspection, Other (sunken eyes.) Oral Mucosa: No Dry Throat: Normal, No Erythema Neck: Normal ROM, Supple Chest: Symmetrical, No Deformity Cardiovascular: Rhythm Regular, No Murmur Respiratory: Normal Breath Sounds, No Rales, No Rhonchi, No Wheezing, Other (NARD) Gastrointestinal/Abdominal: Soft, Tenderness ((+) lower suprapublic ), No Distention, No Guarding, No Rebound Neurological/Psych: Oriented x3, Normal Speech ED Course And Treatment - Laboratory Results Result Diagrams: 04/27/18 10:24 04/27/18 10:24 O2 Sat by Pulse Oximetry: 100 (RA) Pulse Ox Interpretation: Normal Progress - Re-Evaluation Re-evaluation Note: 04/27/18 12:15 NV RESOLVED, NO RECUR SX SINCE INITIAL EVAL. VSS - Data Reviewed Data Reviewed: Lab, Old records Medical Decision Making Medical Decision Making: Plan: -Blood sent. -Urinalysis. -Compazine. Disposition Counseled Patient/Family Regarding: Studies Performed, Diagnosis, Need For Followup, Rx Given - Disposition Referrals: YOUR,OBGYN [Other] Disposition: HOME/ ROUTINE Disposition Time: 12:15 Condition: IMPROVED Prescriptions: Prochlorperazine [Compazine Rectal Supp] 25 mg RC TID #12 sup Instructions: Nausea and Vomiting, Adult (DC) Forms: [employer] (Tajik) - Clinical Impression Clinical Impression: Vomiting, Nausea - Scribe Statement The provider has reviewed the documentation as recorded by the Scribe (Sagrario Richardson) Provider Attestation: All medical record entries made by the Scribe were at my direction and personally dictated by me. I have reviewed the chart and agree that the record accurately reflects my personal performance of the history, physical exam, medical decision making, and the department course for this patient. I have also personally directed, reviewed, and agree with the discharge instructions and disposition.
[2018-04-27 10:49] LABS: ALB/GLOB RATIO 1.4 (1.0-2.1); ALBUMIN 5.1 g/dL (3.5-5.0); ALT/SGPT 17 U/L (9-52); AST/SGOT 18 U/L (14-36); BLOOD UREA NITROGEN 24 mg/dL (7-17); CALCIUM 10.1 mg/dl (8.6-10.4); GFR NON-AFRICAN AMERICAN > 60
[2018-04-27 10:54] LABS: SQUAMOUS EPITHIAL 2 /hpf (0-5); URINE BACTERIA OCC (<OCC); URINE BILIRUBIN NEGATIVE (NEGATIVE); URINE BLOOD 3+ (NEGATIVE); URINE CLARITY Hazy (Clear); URINE COLOR Yellow (YELLOW); URINE GLUCOSE (UA) NORMAL (Normal); URINE LEUKOCYTE ESTERASE TRACE Leu/uL (Negative); URINE PROTEIN 2+ mg/dL (NEGATIVE); URINE UROBILINOGEN NORMAL mg/dL (0.2-1.0)
[2018-04-27 10:55] LABS: VENOUS BLOOD GAS BASE EXCESS -8.8 mmol/L (0.0-2.0); VENOUS BLOOD GAS PCO2 29 mmHg (40-60); VENOUS BLOOD GAS PO2 38 mm/Hg (30-55); VENOUS BLOOD PH 7.34 (7.32-7.43)
[2018-04-27 11:57] VITALS: BP 106/79; PULSE 78; RESP 18; TEMP 98
[2018-04-27 12:18] VITALS: O2SAT 100
== END 2018-04-27 12:30 | disposition home or self-care (01) ==
LOC: C.ER 09:44
DX: R11.2 Nausea with vomiting, unspecified (principal)
CPT/HCPCS: 80053; 81001; 82803; 85025; 96372; 99285; J0780; J7030

== ENCOUNTER 2018-05-10 05:52 | Day surgery (SDC) | payer OTHER ==
[2018-05-03 15:00] VITALS: BMI 17.2
[2018-05-10] MEDS ORDERED: Methylene Blue 10 mg/mL(10ml) IV ONE (07:25)
[2018-05-10] MEDS ORDERED: Bupivacaine 0.25% 20 ML INJ IJ ONE (07:25)
[2018-05-10] MEDS ORDERED: ceFAZolin IV 1 gm in Dextrose 0 GM/0 ML BAG IVPB ONE (07:25)
[2018-05-10] MEDS ORDERED: Lidocaine/Epinephrine 1% 1:100000 10 ML IJ ONE (07:26)
[2018-05-10] MEDS ORDERED: cefOXitin IV 2 gm in Dextrose 2 GM/50 ML BAG IVPB ONE (07:36)
[2018-05-10] MEDS ORDERED: Propofol 10 mg/ml Inj (20 ML) ONE (07:44)
[2018-05-10] MEDS ORDERED: Midazolam 2 MG/2 ML VIAL ONE (07:44)
[2018-05-10] MEDS ORDERED: Rocuronium 10 mg/ml (5 ml) ONE (08:01)
[2018-05-10] MEDS ORDERED: Neostigmine Methylsulfate 3mg/3ml Syringe IV ONE (08:30)
[2018-05-10] MEDS: HYDROmorphone 0.5 mg/0.5 ml ISec IVP PRN ×2 (09:05→09:20)
[2018-05-10] MEDS ORDERED: Lactated Ringer's 500 ML IV ONE (09:45)
[2018-05-10 11:02] VITALS: TEMP 97.7
[2018-05-10 11:36] VITALS: BP 100/60; PULSE 89; RESP 18; O2SAT 99
--- NOTE | 2018-05-10 19:50 | OP ---
PROCEDURE DATE: 05/10/2018 PREOPERATIVE DIAGNOSES: Endometriosis, chronic pelvic pain, and menorrhagia. POSTOPERATIVE DIAGNOSES: Endometriosis, chronic pelvic pain, menorrhagia, fibroid uterus. FINDINGS: Posterior cul-de-sac endometriotic implant. The patient has a large 5 cm posterior submucosal myoma and a second subserosal myoma about 1 cm in diameter on the fundus. Posterior cul-de-sac endometriotic implant was identified and fulgurated, both ovaries and tubes are normal. SURGEON: Chris Hart MD SUPERVISOR CHASSIS ASSEMBLY: Gilberto Urias MD PROCEDURE: Laparoscopic fulguration of endometriosis, laparoscopic myomectomy, dilation and curettage of the uterus. ESTIMATED BLOOD LOSS: 1 mL. COMPLICATIONS: Nil. INDICATIONS: After the risks, benefits, and alternatives of the planned procedures, including but not limited to infection, hemorrhage, deep vein thrombosis, atelectasis, pneumonia, pulmonary embolism, damage to the bladder, damage to the ureter, renal insufficiency, renal failure, wound infection, wound dehiscence, incisional hernia, keloid formation, damage to the large and small intestines, damage to the inferior vena cava and aorta requiring extensive repair, anesthesia complications, electrolyte imbalance, possibility of , fluid overload, cerebral edema, embolism, and other complications that were discussed, but are not listed above have been explained to the patient and all of her questions answered, informed consent was obtained. DESCRIPTION OF PROCEDURE: The patient was taken to the operating room in a stable condition. Under a suitable level of general anesthesia, she was prepped and draped in a sterile fashion after having been placed in a dorsal lithotomy position. Li catheter was inserted and examination under anesthesia revealed a boggy uterus about 10 weeks in size by weight. There are no adnexal masses. A weighted speculum was inserted into the vagina. The anterior lip of the cervix was grasped using a single-tooth tenaculum and endocervical curettage was performed and scant tissue was obtained. The uterus was sounded to 7 cm. The cervix was dilated with #16 Hanks dilator and endometrial curettage was performed and scant tissue was obtained. A HUMI catheter was inserted into the cervix and insufflated into place. Through an umbilical vertical incision, a Veress needle was inserted and a pneumoperitoneum of 3 L was created. The Veress needle was removed and replaced by a 5 mm trocar and sleeve. A 5-mm puncture site was made 3 fingerbreadths above the pubic symphysis, through which a 5 mm trocar and sleeve were inserted. Bipolar cautery was used to fulgurate the posterior cul-de-sac endometriotic implant. Using Endo Henrietta scissors, the fundus of serosa of the fibroid was resected. The tissue was submitted for pathology. There was good hemostasis at the excision site, which was achieved by cauterization. Peritoneal cavity was then irrigated using copious amounts of saline. FloSeal was applied to the excision site on the uterus, again with good hemostasis. The suprapubic sleeve was removed under laparoscopic guidance. The abdomen was deflated of carbon dioxide and the umbilical sleeve was removed under laparoscopic guidance. The skin incisions were then closed using 4-0 Monocryl. Estimated blood loss for the procedure was 1 mL. Pad, needle, and instrument counts were correct x2. There were no complications. Chris Hart MD
== END 2018-05-10 11:30 | disposition home or self-care (01) ==
LOC: C.SDS 05:52
PROVIDERS: ATTEND Obstetrics & Gynecology Reproductive Endocrinology
DX: D25.0 Submucous leiomyoma of uterus (principal); D25.2 Subserosal leiomyoma of uterus; N73.6 Female pelvic peritoneal adhesions (postinfective); N92.1 Excessive and frequent menstruation with irregular cycle; R10.2 Pelvic and perineal pain; G89.29 Other chronic pain; N80.3 Endometriosis of pelvic peritoneum; N94.6 Dysmenorrhea, unspecified
CPT/HCPCS: 58120; 58545; 58662; 88305; J0694; J1100; J1170; J1885; J2001; J2250; J2405; J2704; J2710; J3010; J7120

== ENCOUNTER 2018-08-28 10:27 | Emergency (ER) | payer OTHER ==
[2018-08-28 10:28] VITALS: BMI 17.2
[2018-08-28 10:56] VITALS: RESP 20; O2SAT 100
[2018-08-28] MEDS ORDERED: Sodium Chloride 0.9% 1,000 ML IV ONE (11:14)
[2018-08-28 11:23] LABS: SQUAMOUS EPITHIAL 4 /hpf (0-5); URINE BILIRUBIN NEGATIVE (NEGATIVE); URINE BLOOD 3+ (NEGATIVE); URINE CLARITY Hazy (Clear); URINE COLOR Amber (YELLOW); URINE GLUCOSE (UA) NORMAL (Normal); URINE LEUKOCYTE ESTERASE NEG Leu/uL (Negative); URINE PROTEIN 2+ mg/dL (NEGATIVE); URINE UROBILINOGEN NORMAL mg/dL (0.2-1.0)
[2018-08-28] MEDS ORDERED: Sodium Chloride 0.9% 1,000 ML ONE (11:25)
[2018-08-28 11:27] LABS: HCG,QUALITATIVE URINE NEGATIVE (NEGATIVE)
[2018-08-28 11:35] LABS: BASO % 0.2 % (0.0-2.0); HEMOGLOBIN 13.1 g/dL (11.0-16.0); LYMPH # 0.9 K/uL (1.0-4.3); LYMPH % 13.3 % (20.0-40.0); MEAN CELL VOLUME 85.2 fL (81.0-99.0); MEAN CORPUSCULAR HEMOGLOBIN 27.9 pg (27.0-31.0); MEAN CORPUSCULAR HGB CONC 32.8 g/dL (33.0-37.0); MEAN PLATELET VOLUME 9.7 fL (7.2-11.7); MONO # 0.6 K/uL (0.0-0.8); MONO % 8.5 % (0.0-10.0); NEUT # 5.2 K/uL (1.8-7.0); RBC 4.7 Mil/uL (3.80-5.20); RED CELL DISTRIBUTION WIDTH 14.9 % (11.5-14.5); WHITE BLOOD COUNT 6.6 K/uL (4.8-10.8)
--- NOTE | 2018-08-28 11:36 | C.PDOC ---
History Of Present Illness 27 years old female with PMHx of fibroids presents to ED for complaints of abdominal cramping that radiates to the back, lightheadedness, and vomiting. Patient reports similar symptoms during menstrual cycle every month and she is c urrently on her menstrual cycle now. Patient also reports taking 1 unprescribed percocet for pain on Wednesday, but denies taking any other medications. Patient states she had a fibroids removed several months ago and she is "pending another procedure soon." Denies any other physical complaints. Chief Complaint (Nursing): Abdominal Pain History Per: Patient History/Exam Limitations: no limitations Onset/Duration Of Symptoms: Days Current Symptoms Are (Timing): Still Present Location Of Pain/Discomfort: Diffuse Radiation Of Pain To:: Back Quality Of Discomfort: "Pain" Associated Symptoms: Nausea, Vomiting. denies: Fever, Chills, Diarrhea Exacerbating Factors: None Alleviating Factors: None Last Bowel Movement: Today Recent travel outside of the [place]: No Abnormal Vaginal Bleeding: No Past Medical History Reviewed: Historical Data, Nursing Documentation, Vital Signs Vital Signs: Last Vital Signs Temp Pulse 58 L 08/28/18 10:40 Resp 20 08/28/18 10:40 BP 141/90 08/28/18 10:40 Pulse Ox 100 08/28/18 10:40 - Medical History PMH: Anxiety, Gastritis Family History: States: Unknown Family Hx - Social History Hx Alcohol Use: Yes Hx Substance Use: Yes (MARIJUANA) - Immunization History Hx Tetanus Toxoid Vaccination: No Hx Influenza Vaccination: No Hx Pneumococcal Vaccination: No Review Of Systems Except As Marked, All Systems Reviewed And Found Negative. Constitutional: Negative for: Fever, Chills Gastrointestinal: Positive for: Nausea, Vomiting, Abdominal Pain. Negative for: Diarrhea Musculoskeletal: Positive for: Back Pain Skin: Negative for: Rash Neurological: Positive for: Other (Lightheaded ). Negative for: Weakness, Numbness Physical Exam - Physical Exam Appears: Non-toxic, No Acute Distress Skin: Normal Color, Warm, Dry, No Rash Head: Atraumatic, Normacephalic Eye(s): bilateral: Normal Inspection, PERRL, EOMI Oral Mucosa: Moist Throat: Normal, No Erythema, No Exudate, No Drooling Neck: Normal ROM, Supple Chest: Symmetrical, No Tenderness Cardiovascular: Rhythm Regular, No Murmur Respiratory: Normal Breath Sounds, No Rales, No Rhonchi, No Wheezing Gastrointestinal/Abdominal: Soft, No Tenderness Back: Normal Inspection, No CVA Tenderness Extremity: Normal ROM, No Swelling Extremity: Bilateral: Atraumatic, Normal Color And Temperature, Normal ROM Pulses: Left Radial: Normal, Right Radial: Normal Neurological/Psych: Oriented x3, Normal Speech, Normal Motor Gait: Steady ED Course And Treatment - Laboratory Results Result Diagrams: 08/28/18 11:31 08/28/18 11:31 Lab Results: Urine Color Naz (YELLOW) 08/28/18 11:07 Urine Clarity Hazy (Clear) 08/28/18 11:07 Urine pH 5.0 (5.0-8.0) 08/28/18 11:07 Ur Specific Hoyt 1.031 (1.003-1.030) H 08/28/18 11:07 Urine Protein 2+ mg/dL (NEGATIVE) H 08/28/18 11:07 Urine Glucose (UA) Normal mg/dL (Normal) 08/28/18 11:07 Urine Ketones Trace mg/dL (NEGATIVE) 08/28/18 11:07 Urine Blood 3+ (NEGATIVE) H 08/28/18 11:07 Urine Nitrate Negative (NEGATIVE) 08/28/18 11:07 Urine Bilirubin Negative (NEGATIVE) 08/28/18 11:07 Urine Urobilinogen Normal mg/dL (0.2-1.0) 08/28/18 11:07 Ur Leukocyte Esterase Neg Marybel/uL (Negative) 08/28/18 11:07 Urine WBC (Auto) 5 /hpf (0-5) 08/28/18 11:07 Urine RBC (Auto) 3140 /hpf (0-3) H 08/28/18 11:07 Ur Squamous Epith Cells 4 /hpf (0-5) 08/28/18 11:07 Urine HCG, Qual Negative (NEGATIVE) 08/28/18 11:07 Urine HCG, Qual Negative (NEGATIVE) 08/28/18 11:07 O2 Sat by Pulse Oximetry: 100 (RA) Pulse Ox Interpretation: Normal - Other Rad CXR X-Ray: Viewed By Me, Read By Radiologist Interpretation: Date of service: 08/28/2018. HISTORY: Abdominal pain. COMPARISON: None available. FINDINGS: LUNGS: No active pulmonary disease. PLEURA: No significant pleural effusion identified, no pneumothorax apparent. CARDIOVASCULAR: No aortic atherosclerotic calcification present. Normal cardiac size. No pulmonary vascular congestion. OSSEOUS STRUCTURES: No signif icant abnormalities. VISUALIZED UPPER ABDOMEN: Normal. OTHER FINDINGS: None. IMPRESSION: No active disease. Medical Decision Making Medical Decision Making: Plan: * IV Fludis * Zofran * Toradol * Pepcid * Blood work * CXR * Urinalysis On re-exam, the patient reports improvement of symptoms. Lungs are CTA, heart is RRR, abdomen is soft, non-tender and tolerating PO well. Ambulatory in the ED with steady gait. Follow up with the medical doctor within 1-2 days. Return if worsened. Disposition - Disposition Referrals: Rachel Rasmussen MD [Staff Provider] - Chris Hart MD [Staff Provider] - Disposition: HOME/ ROUTINE Disposition Time: 13:46 Condition: GOOD Additional Instructions: Follow up with the medical doctor within 1-2 days. Return if worsened. Prescriptions: Metoclopramide [Reglan] 1 tab PO TID PRN #25 tab PRN Reason: Nausea/Vomiting Naproxen [Naprosyn] 500 mg PO BID #20 tab Ondansetron ODT [Zofran ODT] 1 odt PO BID PRN #10 odt PRN Reason: Nausea/Vomiting Instructions: Heavy Periods (DC), Endometrial Ablation (DC) Forms: [employer] ([place]) - Clinical Impression Clinical Impression: Menometrorrhagia - PA / TURNTABLE ENGINEER / Resident Statement MD/DO has reviewed & agrees with the documentation as recorded. - Scribe Statement The provider has reviewed the documentation as recorded by the Belenibasher Moss All medical record entries made by the Belenibasher were at my direction and personally dictated by me. I have reviewed the chart and agree that the record accurately reflects my personal performance of the history, physical exam, medical decision making, and the department course for this patient. I have also personally directed, reviewed, and agree with the discharge instructions and disposition
[2018-08-28 11:48] LABS: ALB/GLOB RATIO 1.3 (1.0-2.1); ALBUMIN 5.1 g/dL (3.5-5.0); ALT/SGPT 6 U/L (9-52); AST/SGOT 26 U/L (14-36); BLOOD UREA NITROGEN 22 mg/dL (7-17); CALCIUM 9.9 mg/dl (8.6-10.4); GFR NON-AFRICAN AMERICAN > 60; LIPASE 42 U/L (23-300)
--- NOTE | 2018-08-28 13:41 | RAD ---
Date of service: 08/28/2018 HISTORY: Abdominal pain COMPARISON: None available. FINDINGS: LUNGS: No active pulmonary disease. PLEURA: No significant pleural effusion identified, no pneumothorax apparent. CARDIOVASCULAR: No aortic atherosclerotic calcification present. Normal cardiac size. No pulmonary vascular congestion. OSSEOUS STRUCTURES: No significant abnormalities. VISUALIZED UPPER ABDOMEN: Normal. OTHER FINDINGS: None. IMPRESSION: No active disease.
[2018-08-28 13:53] VITALS: BP 135/85; PULSE 59; TEMP 98.5
== END 2018-08-28 14:02 | disposition home or self-care (01) ==
LOC: C.ER 10:27
DX: N92.1 Excessive and frequent menstruation with irregular cycle (principal)
CPT/HCPCS: 71045; 80053; 81001; 83690; 84703; 85025; 96361; 96374; 96375; 99285; J1885; J2405; J7030